=== PATIENT | female | born 1995 | race Caucasian/White ===

== ENCOUNTER 2017-07-29 12:11 | Emergency (ER) | payer OTHER ==
[2017-07-29 13:09] VITALS: BP 132/87
--- NOTE | 2017-07-29 13:59 | UC ---
Skin Complaint HPI - HPI Summary HPI Summary: Was outside 2 days. Ice and developed a rash on her abdomen arms some on her legs little bit up on her face itchy red blanchable with some vesicles - History of Current Complaint Chief Complaint: UCRash Time Seen by Provider: 07/29/17 13:52 Stated Complaint: SKIN IRRITATION/ITCHY-POSS ALLERGIC REACTION*2DAYS Hx Obtained From: Patient Hx Last Menstrual Period: 07/20/17 ?: No Onset/Duration: Sudden Onset, Lasting Days - 2 Skin Exposure Onset/Duration: Days Ago - 2 Timing: Constant Onset Severity: Mild Current Severity: Mild Pain Intensity: 2 Pain Scale Used: 0-10 Numeric Location: Diffuse Character: Pruritus, Redness Aggravating Factor(s): Nothing Alleviating Factor(s): Nothing Associated Signs & Symptoms: Positive: Rash Related History: Possible Reaction to: Environmental Exposure - Allergy/Home Medications Allergies/Adverse Reactions: Allergies Allergy/AdvReac Type Severity Reaction Status Date / Time No Known Allergies Allergy Verified 07/29/17 13:09 Home Medications: Home Medications Calamine LOTION* 1 applic .SEE ORDER SEE INSTRUCTIONS PRN 07/29/17 [History Confirmed 07/29/17] Progesterone Only Oc 1 tab PO QAM 07/29/17 [History Confirmed 07/29/17] Review of Systems Constitutional: Negative Skin: Rash Eyes: Negative ENT: Negative Respiratory: Negative Cardiovascular: Negative Gastrointestinal: Negative Genitourinary: Negative Motor: Negative Neurovascular: Negative Musculoskeletal: Negative Neurological: Negative Psychological: Negative Is Patient Immunocompromised?: No All Other Systems Reviewed And Are Negative: Yes PMH/Surg Hx/FS Hx/Imm Hx Previously Healthy: Yes - Surgical History Surgical History: None - Family History Known Family History: Positive: None - Social History Occupation: Unemployed Lives: With Family Alcohol Use: Occasionally Substance Use Type: None Smoking Status (MU): Never Smoked Tobacco - Immunization History Most Recent Tetanus Shot: ~2016 Physical Exam Triage Information Reviewed: Yes Appearance: Well-Appearing, No Pain Distress, Well-Nourished Vital Signs: Initial Vital Signs Temp 98.4 F 07/29/17 13:00 Pulse 86 07/29/17 13:00 Resp 18 07/29/17 13:00 BP 132/87 07/29/17 13:00 Pulse Ox 100 07/29/17 13:00 Vital Signs Reviewed: Yes Eye Exam: Normal Eyes: Positive: Conjunctiva Clear ENT Exam: Normal ENT: Positive: Normal ENT inspection, Hearing grossly normal, Pharynx normal, TMs normal, Uvula midline. Negative: Nasal congestion, Tonsillar swelling, Tonsillar exudate, Trismus, Muffled voice, Hoarse voice, Dental tenderness, Sinus tenderness Dental Exam: Normal Neck exam: Normal Neck: Positive: Supple, Nontender, No Lymphadenopathy Respiratory Exam: Normal Respiratory: Positive: Chest non-tender, Lungs clear, Normal breath sounds, No respiratory distress, No accessory muscle use Cardiovascular Exam: Normal Cardiovascular: Positive: RRR, No Murmur, Pulses Normal, Brisk Capillary Refill Musculoskeletal Exam: Normal Musculoskeletal: Positive: Strength Intact, ROM Intact, No Edema Neurological Exam: Normal Neurological: Positive: Alert, Muscle Tone Normal Psychological Exam: Normal Skin Exam: Other Skin: Positive: rashes - Rash on abdomen, back, right and left forearms, right groin, thigh, upper lip ,and above EYES Course/Dx - Course Course Of Treatment: May continue calamine lotion for comfort, prednisone, Benadryl, cool compresses. Follow with PCP or return as needed for worsening symptoms or failure symptoms to resolve - Diagnoses Provider Diagnoses: Contact dermatitis Discharge - Sign-Out/Discharge Documenting (check all that apply): Discharge/Admit/Transfer - Discharge Plan Condition: Stable Disposition: HOME Prescriptions: predniSONE TAB* [Deltasone TAB*] 20 mg PO DAILY #18 tab Patient Education Materials: Diphenhydramine (By mouth), Contact Dermatitis (ED ), Cold Compress or Soak (ED) Referrals: [facility] [employer] [employer] [Primary Care Provider] - If Needed - Billing Disposition and Condition Condition: STABLE Disposition: HOME
== END 2017-07-29 14:08 | disposition home or self-care (01) ==
LOC: UCCORT 12:11
DX: L25.9 Unspecified contact dermatitis, unspecified cause (principal)
CPT/HCPCS: 99212; G0463